=== PATIENT | female | born 1955 | race Caucasian/White ===

== ENCOUNTER → 2017-01-09 | Outpatient (CLI) | payer OTHER ==
[2017-01-09 13:41] LABS: CREATININE SERUM 1.03 MG/DL (0.60-1.30)
== END ==
LOC: RAD 13:09
PROVIDERS: ATTEND Family Medicine
DX: N28.9 Disorder of kidney and ureter, unspecified (principal)
CPT/HCPCS: 36415; 82565; 84520

== ENCOUNTER → 2017-01-25 | Outpatient (CLI) | payer OTHER ==
[~2017-01-25] MED LIST: CATHETER FLUSH 10 ML SYR IV PRN; IOHEXOL 350 MG/ML 100 ML (OMNIPAQUE 350) VIAL IV ONE; NS 100 ML (IVPB) BAG IV ONE
--- NOTE | 2017-01-25 12:31 | Diagnostic Imaging Report ---
PROCEDURE: CT head with and without contrast. TECHNIQUE: Multiple contiguous axial images were obtained through the brain before and after the administration of intravenous contrast. INDICATION: Headache. CONTRAST: 80 mL of Omnipaque 350 was administered intravenously. FINDINGS: The unenhanced phase demonstrates no intracranial hemorrhage, edema, or mass effect. No enhancing mass is seen in the brain or extra-axial space. No hydrocephalus. No extra-axial fluid collection or mass. The calvarium and the visualized portions of the paranasal sinuses and orbits appear grossly unremarkable. IMPRESSION: Unremarkable exam. Dictated by: Dictated on workstation # [id number]
== END ==
LOC: RAD 11:40
PROVIDERS: ATTEND Family Medicine
DX: R51 Headache (principal)
CPT/HCPCS: 70470

== ENCOUNTER → 2017-07-19 | Outpatient (CLI) | payer OTHER ==
--- NOTE | 2017-07-19 16:18 | Diagnostic Imaging Report ---
PROCEDURE: MRI lumbar spine. TECHNIQUE: Multiplanar, multisequence MRI of the lumbar spine was performed without contrast. INDICATION: Low back pain. FINDINGS: There is satisfactory alignment of the lumbar spine. The vertebral body heights are preserved. There is severe disc height loss at L3/L4 level with significant endplate irregularity and endplate edema seen. The cauda equina and conus medullaris appear grossly unremarkable. At T11/12, there is a right paracentral disc protrusion with no significant spinal canal stenosis or cord compression. The foramina appear preserved. T12/L1: No disc herniation, no spinal canal or foraminal stenosis. L1/2: No disc herniation, no spinal canal or foraminal stenosis. L2/3: There is a mild diffuse disc bulge and mild facet hypertrophy bilaterally. No central canal, lateral recess or foraminal stenosis. L3/4: There is a diffuse disc bulge and mild facet hypertrophy. There is no significant central canal stenosis. The lateral recess on both sides demonstrates mild stenosis. The foramina demonstrate mild stenosis on the right and mild to moderate stenosis on the left. The extraforaminal component of the disc bilaterally is abutting the exiting L3 spinal nerve bilaterally. L4/5: There is no disc herniation. There is moderate facet hypertrophy. No central canal stenosis. There is mild to moderate narrowing of the left lateral recess and mild stenosis of the right lateral recess. There is mild to moderate narrowing of the right foramen and mild narrowing of the left foramen. L5/S1: There is a mild disc bulge and mild facet hypertrophy with no central canal or lateral recess stenosis. There is no significant foraminal stenosis seen. IMPRESSION: At L3/4 level, there is severe disc height loss and endplate irregularity with a diffuse disc bulge. The extraforaminal portion of the bulging disc on both sides is abutting the exiting L3 nerve roots just after the nerve exits the neural foramen. Dictated by: Dictated on workstation # [id number]
== END ==
LOC: RAD 13:11
PROVIDERS: ATTEND Family Medicine
DX: M51.16 Intervertebral disc disorders with radiculopathy, lumbar region (principal)
CPT/HCPCS: 72148

== ENCOUNTER → 2017-11-15 | Outpatient (CLI) | payer OTHER ==
[2017-11-15 11:45] LABS: HEMOGLOBIN 14.4 G/DL (11.5-16.0); MEAN PLATELET VOLUME 9.2 FL (7.4-10.4); RED BLOOD COUNT 5.12 10^6/uL (4.35-5.85); RED CELL DISTRIBUTION WIDTH 13.5 % (10.0-14.5); WHITE BLOOD COUNT 6.6 10^3/uL (4.3-11.0)
[2017-11-15 12:09] LABS: ALANINE AMINOTRANSFERASE 22 U/L (0-55); ALBUMIN 4.2 GM/DL (3.2-4.5); ALKALINE PHOSPHATASE 63 U/L (40-136); BILIRUBIN,TOTAL 0.3 MG/DL (0.1-1.0); BUN/CREATININE RATIO 19; CALCIUM 9.2 MG/DL (8.5-10.1); CARBON DIOXIDE 27 MMOL/L (21-32); CHLORIDE 105 MMOL/L (98-107); GFR ESTIMATED > 60; GLUCOSE 91 MG/DL (70-105); POTASSIUM 4.1 MMOL/L (3.6-5.0); SODIUM 143 MMOL/L (135-145); TOTAL PROTEIN 6.8 GM/DL (6.4-8.2)
--- NOTE | 2017-11-15 12:22 | Diagnostic Imaging Report ---
INDICATION: Left knee pain. TIME OF EXAM: 12:10 p.m. TECHNIQUE: Three views of the left knee were obtained. FINDINGS: There is patellofemoral degenerative change with marginal spurring present. Mild marginal spurring of the medial compartment and lateral compartment is also seen. No fracture, dislocation, or effusion is identified. IMPRESSION: Mild degenerative changes. No acute bony abnormality is detected. Dictated by: Dictated on workstation # [id number]
--- NOTE | 2017-11-15 12:23 | Diagnostic Imaging Report ---
INDICATION: Left hip pain and popping. TIME OF EXAM: 12:09 PM FINDINGS: Two views of left hip demonstrate normal femoroacetabular alignment. The joint space is well maintained. The femoral head and neck are intact. No fractures are seen. IMPRESSION: No acute abnormality is detected. Dictated by: Dictated on workstation # [id number]
== END ==
LOC: RAD 11:15
PROVIDERS: ATTEND Internal Medicine Rheumatology
DX: M17.12 Unilateral primary osteoarthritis, left knee (principal); M25.552 Pain in left hip
CPT/HCPCS: 36415; 73502; 73562; 80053; 85027; 86038; 86200; 86430

== ENCOUNTER → 2018-07-20 | Outpatient (CLI) | payer OTHER ==
--- NOTE | 2018-07-20 14:27 | Diagnostic Imaging Report ---
INDICATION: Left hip pain. TIME OF EXAM: 11:17 AM FINDINGS: Two views of left hip demonstrate normal femoral acetabular alignment. The joint space is well maintained. The femoral head and neck are intact. No fractures are seen. IMPRESSION: No acute bony abnormality is detected. Dictated by: Dictated on workstation # [id number]
== END ==
LOC: RAD 10:19
PROVIDERS: ATTEND Family Medicine
DX: M25.552 Pain in left hip (principal)
CPT/HCPCS: 73502